=== PATIENT | female | born 1950 | race Caucasian/White ===

== ENCOUNTER 2017-03-27 06:34 | Day surgery (SDC) | payer OTHER ==
[~2017-03-27 06:34] MED LIST: ceFAZolin 2 GM/DEXTROSE 100 ML IV ONE
[2017-03-27] MEDS ORDERED: BUPIVACAINE 0.5% 30 ML SDV ONE (06:36)
[2017-03-27] MEDS ORDERED: ceFAZolin 2 GM/DEXTROSE 100 ML IV ONE (06:41)
[2017-03-27] MEDS ORDERED: LR 1,000 ML IV ONE (06:43)
[2017-03-27] MEDS ORDERED: LIDOCAINE 1% 2 ML INJ ID PRN (06:43)
[2017-03-27 07:38] LABS: ANION GAP 14 mEq/L (8-16); CALCIUM 9.8 mg/dL (8.5-10.4); CARBON DIOXIDE 26 mEq/l (22-31); CHLORIDE 97 mEq/L (97-110); CREATININE 0.8 mg/dL (0.6-1.0); GLOMERULAR FILTRATION RATE > 60; GLUCOSE 90 mg/dL (70-100); POTASSIUM 4.4 mEq/L (3.5-5.2); SODIUM 137 mEq/L (134-144)
--- NOTE | 2017-03-27 08:17 | PDHPUP ---
History & Physical Update H&P update statement: This history and physical update is based on an assessment of the patient which was completed after admission or registration (within 24 hours), but prior to the surgery/procedure. H&P update: H&P reviewed & patient examined, no change in patient's condition since H&P completed
[2017-03-27] MEDS ORDERED: MIDAZOLAM 2 MG/2 ML VIAL IVP ONE (08:21)
--- NOTE | 2017-03-27 08:23 | PDANEPAE ---
ANE History of Present Illness Lumbar hernia ANE Past Medical History - Cardiovascular History Hx Hypertension: Yes Hx Arrhythmias: No Hx Chest Pain: No Hx Coronary Artery / Peripheral Vascular Disease: No Hx CHF / Valvular Disease: No Hx Palpitations: No - Pulmonary History Hx COPD: No Hx Asthma/Reactive Airway Disease: No Hx Recent Upper Respiratory Infection: No Hx Oxygen in Use at Home: No Hx Sleep Apnea: No Sleep Apnea Screening Result - Last Documented: Negative - Neurologic History Hx Cerebrovascular Accident: No Hx Seizures: No Hx Dementia: No Neurologic History Comment: concussions x2 -short term memory loss. - Endocrine History Hx Diabetes: No - Renal History Hx Renal Disorders: No - Liver History Hx Hepatic Disorders: No - Neurological & Psychiatric Hx Hx Neurological and Psychiatric Disorders: Yes Neurological / Psychiatric History Comment: Effexor " evens me out" - Cancer History Hx Cancer: Yes Cancer History Comment: SKIN CANCER-basal - Congenital Disorder History Hx Congenital Disorders: No - GI History Hx Gastrointestinal Disorders: No - Other Health History Other Health History: RA x 2 years managed- Hydroxychloroquine Sulfate. hernia on lumbar area R side. - Chronic Pain History Chronic Pain: No - Surgical History Prior Surgeries: APPY ANE Review of Systems Review of Systems: - Exercise capacity METS (RN): 4 METS ANE Patient History - Allergies Allergies/Adverse Reactions: No Known Allergies Allergy (Verified 03/26/17 13:20) - Home Medications Home Medications: Nebivolol HCl [Bystolic] 20 mg PO HS 04/13/15 [Last Taken 03/26/17] Triamterene/Hydrochlorothiazid [Triamterene-Hctz 37.5-25 mg Cp] 1 each PO DAILY 04/13/15 [Last Taken 03/26/17] Venlafaxine Xr [Effexor Xr 75MG (*)] 75 mg PO DAILY 04/13/15 [Last Taken 06:10] Hydroxychloroquine Sulfate 03/26/17 [Last Taken 03/27/17 06:10] SIMVASTATIN 03/26/17 [Last Taken 03/26/17] - NPO status NPO Since - Liquids (Date): 03/26/17 NPO Since - Liquids (Time): 21:00 NPO Since - Solids (Date): 03/26/17 NPO Since - Solids (Time): 17:00 - Smoking Hx Smoking Status: Former smoker - Family Anes Hx Family Hx Anesthesia Complications: NONE ANE Labs/Vital Signs - Labs Result Diagrams: 03/27/17 07:13 - Vital Signs Blood Pressure: 145/92 Heart Rate: 68 Respiratory Rate: 14 O2 Sat (%): 94 Height: 158.75 cm Weight: 54.431 kg ANE Physical Exam - Airway Neck exam: FROM Mallampati Score: Class 1 Mouth exam: normal dental/mouth exam - Pulmonary Pulmonary: no respiratory distress - Cardiovascular Cardiovascular: regular rate and rhythym - ASA Status ASA Status: II ANE Anesthesia Plan Anesthesia Plan: general endotracheal anesthesia Regional Anesthesia: single shot NB Specialized Airway: double lumen tube Total IV Anesthesia: No
[2017-03-27] MEDS ORDERED: ONDANSETRON 4 MG/2 ML VIAL ONE (08:26)
[2017-03-27] MEDS ORDERED: LIDOCAINE 2% 5 ML SDV ONE (08:26)
[2017-03-27] MEDS ORDERED: DEXAMETHASONE 4 MG/ML VIAL ONE (08:26)
[2017-03-27] MEDS ORDERED: ROCURONIUM 50 MG/5 ML VIAL ONE (08:26)
[2017-03-27] MEDS ORDERED: PROPOFOL 200 MG/20 ML VIAL ONE (08:27)
[2017-03-27] MEDS ORDERED: fentaNYL 100 MCG/2 ML INJ ONE ×3 (08:27→10:46)
[2017-03-27] MEDS ORDERED: NALOXONE HCL 0.4 MG/ML INJ IVP PRN (08:56)
[2017-03-27] MEDS ORDERED: HYDROmorphONE/DILAUDID 1 MG/ML INJ IVP PRN (08:56)
[2017-03-27] MEDS ORDERED: DEXAMETHASONE 4 MG/ML VIAL IVP PRN (08:56)
[2017-03-27] MEDS ORDERED: ONDANSETRON 4 MG/2 ML VIAL IVP PRN (08:56)
[2017-03-27] MEDS ORDERED: THROMBIN (BOVINE) 5,000 UNIT VIAL TP ONE (09:52)
[2017-03-27] MEDS ORDERED: ONDANSETRON DISINTEGRATING 4 MG TAB PO PRN (10:16)
[2017-03-27] MEDS ORDERED: HYDROCODONE/APAP 5/325 TAB PO PRN (10:16)
--- NOTE | 2017-03-27 10:17 | POSTOPPROG ---
Post Op Note Date of Operation: 03/27/17 Surgeon: Jericho Babb Rigging Loft Repairer: Corinna Vasquez Anesthesiologist: Kal Anesthesia: GET(General Endotracheal) Pre-op Diagnosis: Right lumbar hernia Post-op Diagnosis: same Indication: enlarging hernia Procedure: Open right lumbar hernia repair with mesh Inf/Abcess present in the surg proc area at time of surgery?: No Depth: Organ Space EBL: Minimal
--- NOTE | 2017-03-27 10:18 | POSTANESTH ---
Post Anesthetic Evaluation Cardiovascular Status: Normal, Stable Respiratory Status: Normal, Stable Level of Consciousness/Mental Status: Can Participate in Eval Pain Control: Adequate, Prn Tx Ordered Nausea/Vomiting Control: Adequate, Prn Tx Ordered Complications Possibly Related to Anesthesia: None Noted
[2017-03-27 10:26] VITALS: TEMP 98.6
[2017-03-27] MEDS: fentaNYL 100 MCG/2 ML INJ IVP PRN ×3 (10:48→11:06)
[2017-03-27] MEDS ORDERED: HYDROCODONE/APAP 5/325 TAB ONE (11:25)
[2017-03-27 11:40] VITALS: PULSE 69
[2017-03-27 11:44] VITALS: RESP 14
[2017-03-27 13:09] VITALS: BP 122/78; O2SAT 99
--- NOTE | 2017-03-27 19:17 | GOP ---
[f rep st] OPERATIVE REPORT DATE OF OPERATION: 03/27/2017 SURGEON: Jericho Babb MD DATA CONVERSION DEVELOPER: Corinna Vasquez PA-C ANESTHESIOLOGIST: Dr. Bodwen. PREOPERATIVE DIAGNOSIS: Symptomatic right lumbar hernia. POSTOPERATIVE DIAGNOSIS: Symptomatic right lumbar hernia. PROCEDURE PERFORMED: Open repair of the ventral lumbar hernia with mesh. FINDINGS: The patient was found to have protrusion of the right lateral flank underneath the 12th ri b to the lumbar muscles. DESCRIPTION OF PROCEDURE: The patient was taken to the operating room where she received satisfactor y general endotracheal anesthesia by Dr. Bowden. She was placed in the left lateral decubitus positi on, prepped and draped in usual sterile fashion. Oblique incision was made over the hernia defect be low the 12th rib. Dissection was carried down through subcutaneous tissue. The external oblique fas serena was incised. The weakness between the external oblique and internal oblique muscle laterally was identified. This was opened up, exposing a weakness and protrusion through the transversalis in isidro t area. This was incised and the hernia defect was reduced. A subfascial pocket was created circumf erentially. A piece of Covidien ProGrip mesh was placed in the defect and anchored around the periph carla with interrupted 0 Ethibond mattress sutures, a good 1-2 inches away from the open wound. These sutures were tied in position. Valsalva maneuver was done by Anesthesia, with no further protrusion or bulging of the hernia, which had been well demonstrated with a Valsalva maneuver before. The musc le layers were then closed with a running #1 PDS suture for the muscular layers. The wounds were inf iltrated with 0.5% Marcaine, subcu was closed with running 2-0 Vicryl, skin with a 4-0 Monocryl subcu ticular stitch. All levels were fully infiltrated with 0.5% Marcaine. Some topical thrombin was chata harvey in the surgical cavity. She tolerated the procedure well and was taken to recovery room in good condition. There were no complications. /[id number]/MODL
== END 2017-03-27 12:10 | disposition home or self-care (01) ==
LOC: FSGY 06:34
PROVIDERS: ATTEND Surgery
PROC: 0WU Anatomical Regions, General, Supplement (ICD-10-PCS; principal; 2017-03-27 08:30)
DX: K45.8 Other specified abdominal hernia without obstruction or gangrene (principal); K42.9 Umbilical hernia without obstruction or gangrene; I10 Essential (primary) hypertension; F32.9 Major depressive disorder, single episode, unspecified; E78.00 Pure hypercholesterolemia, unspecified; M06.00 Rheumatoid arthritis without rheumatoid factor, unspecified site; G31.84 Mild cognitive impairment of uncertain or unknown etiology; E55.9 Vitamin D deficiency, unspecified
CPT/HCPCS: C1781; J0690; J1100; J2250; J2405; J2704; J3010

== ENCOUNTER → 2017-08-15 | Outpatient (CLI) | payer OTHER | LOC: FIMAGING 14:26 | PROVIDERS: ATTEND Internal Medicine Rheumatology | DX: M06.09 Rheumatoid arthritis without rheumatoid factor, multiple sites (principal) ==

== ENCOUNTER 2018-03-23 09:15 | Inpatient (IN) | payer OTHER ==
[2018-03-23] MEDS ORDERED: NS 1,000 ML IV ONE (09:26)
[2018-03-23] MEDS ORDERED: DIAZEPAM 5 MG TAB ONE (09:56)
--- NOTE | 2018-03-23 10:09 | CPEKG ---
Test Reason : OPEN Blood Pressure : / mmHG Vent. Rate : 145 BPM Atrial Rate : 135 BPM P-R Int : 100 ms QRS Dur : 078 ms QT Int : 312 ms P-R-T Axes : 000 -59 021 degrees QTc Int : 485 ms Atrial fibrillation Left anterior fascicular block Confirmed by Tam Sanz ([id number]) on 03/23/2018 10:08:50 AM Referred By: Confirmed By:Tam Sanz
[2018-03-23 10:13] LABS: PLATELET COUNT 124 10^3/uL (150-400)
[2018-03-23] MEDS ORDERED: DIAZEPAM 5 MG TAB PO ONE (10:15)
[2018-03-23 10:25] LABS: INR 1.05 (0.83-1.16); PROTIME(PATIENT) 13.9 SEC (12.0-15.0)
[2018-03-23] MEDS ORDERED: LIDOCAINE 1% 300 MG/30 ML SDV ONE (10:55)
[2018-03-23] MEDS ORDERED: ISOPROTERENOL HCL/D5W 0.2 MG/50 ML BAG IV ONE (10:56)
[2018-03-23] MEDS ORDERED: BUPIVACAINE 0.75% 10 ML SDV ONE (10:56)
[2018-03-23] MEDS ORDERED: HEPARIN 10,000 UNIT/10 ML MDV (1,000 UNIT/ML) ONE (10:56)
--- NOTE | 2018-03-23 11:02 | PDGENHP ---
History & Physical Chief Complaint: symptomatic afib and afl Relevant Physical Exam: s1s2 tachycardic. cta. ao3 Cardiorespiratory Assessment: for afl ablation
--- NOTE | 2018-03-23 11:15 | PDANEPAE ---
ANE Past Medical History - Cardiovascular History Hx Hypertension: Yes Hx Arrhythmias: Yes Hx Chest Pain: Yes Hx Coronary Artery / Peripheral Vascular Disease: No Hx CHF / Valvular Disease: Yes Hx Palpitations: No - Pulmonary History Hx COPD: No Hx Asthma/Reactive Airway Disease: No Hx Recent Upper Respiratory Infection: No Hx Oxygen in Use at Home: No Hx Sleep Apnea: No - Neurologic History Hx Cerebrovascular Accident: No Hx Seizures: No Hx Dementia: No Neurologic History Comment: concussions x2 -short term memory loss. - Endocrine History Hx Diabetes: No - Renal History Hx Renal Disorders: No - Liver History Hx Hepatic Disorders: No - Neurological & Psychiatric Hx Hx Neurological and Psychiatric Disorders: Yes Neurological / Psychiatric History Comment: Effexor " evens me out" - Cancer History Hx Cancer: Yes Cancer History Comment: SKIN CANCER-basal - Congenital Disorder History Hx Congenital Disorders: No - GI History Hx Gastrointestinal Disorders: No - Other Health History Other Health History: RA x 2 years managed- Hydroxychloroquine Sulfate. hernia on lumbar area R side. - Chronic Pain History Chronic Pain: No - Surgical History Prior Surgeries: APPY ANE Review of Systems Review of Systems: ANE Patient History - Allergies Allergies/Adverse Reactions: No Known Allergies Allergy (Verified 01/28/18 11:03) - Home Medications Home medications: home medication list seen and reviewed Home Medications: Triamterene/Hydrochlorothiazid [Triamterene-Hctz 37.5-25 mg Cp] 1 each PO DAILY 04/13/15 [Last Taken 02/20/18] Venlafaxine Xr [Effexor Xr 75MG (*)] 75 mg PO DAILY 04/13/15 [Last Taken ] Allopurinol [Allopurinol 300 MG (RX)] 300 mg PO DAILY 02/20/18 [Last Taken Unknown] Apixaban [Eliquis] 5 mg PO BID 02/20/18 [Last Taken Unknown] Herbals/Supplements -Info Only 1 ea PO DAILY 02/20/18 [Last Taken Unknown] Meloxicam 15 mg PO DAILY 02/20/18 [Last Taken Unknown] Metoprolol Succinate Xr [Toprol Xl 50 mg (*)] 100 mg PO BID 02/20/18 [Last Taken 02/20/18] Simvastatin 20 mg PO HS 02/20/18 [Last Taken Unknown] - NPO status NPO Status: no food or drink >8 hours - Anes Hx Anes Hx: no prior problems - Smoking Hx Smoking Status: Former smoker - Family Anes Hx Family Hx Anesthesia Complications: NONE ANE Labs/Vital Signs - Labs Result Diagrams: 03/23/18 09:50 03/23/18 09:50 ANE Physical Exam - Airway Neck exam: FROM Mallampati Score: Class 2 Mouth exam: normal dental/mouth exam - Pulmonary Pulmonary: no respiratory distress, no rales or rhonchi, clear to auscultation - Cardiovascular Cardiovascular: tachycardia - ASA Status ASA Status: III ANE Anesthesia Plan Anesthesia Plan: general endotracheal anesthesia
[2018-03-23] MEDS ORDERED: DEXAMETHASONE 4 MG/ML VIAL ONE (11:16)
[2018-03-23] MEDS ORDERED: ONDANSETRON 4 MG/2 ML VIAL ONE (11:16)
[2018-03-23] MEDS ORDERED: PROPOFOL 200 MG/20 ML VIAL ONE (11:16)
[2018-03-23] MEDS ORDERED: ROCURONIUM 100 MG/10 ML VIAL ONE (11:16)
[2018-03-23] MEDS ORDERED: fentaNYL 100 MCG/2 ML INJ ONE (11:16)
[2018-03-23] MEDS ORDERED: HEPARIN/DEXTROSE 25,000 UNIT/500 ML BAG ONE (12:00)
[2018-03-23] MEDS ORDERED: PHENYLEPHRINE HCL 100 MCG/ML SYR ONE ×2 (12:16)
[2018-03-23] MEDS ORDERED: NEOSTIGMINE METHYLSULFATE 5 MG/5 ML SYR ONE (13:12)
[2018-03-23] MEDS ORDERED: GLYCOPYRROLATE 0.2 MG/1 ML VIAL ONE (13:12)
[2018-03-23] MEDS ORDERED: PROTAMINE SULFATE 50 MG/5 ML VIAL IVP ONE (13:14)
[2018-03-23] MEDS ORDERED: DIAZEPAM 5 MG/ML 1 ML SYR IVP PRN (13:15)
[2018-03-23] MEDS ORDERED: ACETAMINOPHEN 500 MG TAB PO PRN (13:15)
[2018-03-23] MEDS ORDERED: HYDROCODONE/APAP 5/325 TAB PO PRN (13:15)
[2018-03-23] MEDS ORDERED: ONDANSETRON 4 MG/2 ML VIAL IVP PRN (13:15)
[2018-03-23] MEDS ORDERED: PROMETHAZINE HCL 25 MG/ML INJ IVP PRN (13:15)
[2018-03-23] MEDS ORDERED: oxyCODONE IR 5 MG TAB PO PRN (13:15)
[2018-03-23] MEDS ORDERED: fentaNYL 100 MCG/2 ML INJ IVP PRN (13:15)
[2018-03-23] MEDS ORDERED: NALOXONE HCL 0.4 MG/ML INJ IVP PRN (13:15)
[2018-03-23] MEDS ORDERED: DEXAMETHASONE 4 MG/ML VIAL IVP PRN (13:15)
[2018-03-23] MEDS ORDERED: NS 500 ML IV PRN (13:15)
--- NOTE | 2018-03-23 13:16 | EPPROC ---
Electrophysiology Procedure Note: ELECTROPHYSIOLOGIC STUDY AND CATHETER MEDIATED ABLATION FOR SUBEUSTACHIAN ISTHMUS DEPENDENT COUNTERCLOCKWISE ATRIAL FLUTTER: INDICATION: Recurrent atrial flutter Atrial fibrillation post atrial flutter PROCEDURES PERFORMED: 38619-72 EP evaluation with RA/RV/LA pace/record, with arrhythmia induction 53833-92 EP evaluation with RA/RV pace record, insert/reposition catheter, with arrhythmia induction Right heart catheterization 78177 SVT ablation 52800 3D mapping Fluoroscopy Catheters & Anesthesia: The patient arrived in the Electrophysiology Laboratory in the fasting state. The right clavicular region, right groin, and left groin area were prepped and draped in the usual sterile manner. Anesthesiologist Dr. Eulogio Christianson administered general anesthesia. Appropriate non-invasive blood pressure, pulse oximetry and end-tidal CO2 monitoring was established. Right heart catheterization was done using PWP catheters RA 10 mmHg, 75.9% RV 32/8 mmHg, 75.6% PA 36/18 mmHg, 74.5% All catheters were placed percutaneously using the modified Seldinger technique , and advanced into position under fluoroscopic guidance. One #7 Panamanian deflectable octapolar electrode catheter was advanced to the His-bundle position via the left femoral vein (2mm spacing; except the proximal ring which was 25cm from the tip used for unipolar recordings). One #7 Panamanian deflectable catheter with 10 pairs of electrodes was placed via the left femoral vein into the coronary sinus. One # 7 Panamanian Halo catheter was inserted through the right femoral vein and was placed at the tricuspid annulus. Heparin was administered to keep ACT > 300 seconds. Programmed stimulation was performed from the right atrium, coronary sinus ( left atrium) and right ventricle. Parahisian pacing demonstrated all retrograde conduction over the AV node. On arrival to the Electrophysiology Laboratory the patient was in atrial fibrillation. Post MARJORIE, DCCV was performed. Atrial flutter has been documented previously. In preparation for ablation of typical atrial flutter, a high-resolution 3D (3 dimensional) Carto electroanatomical map of the sub-Eustachian isthmus and right atrium was obtained during pacing of the posterolateral coronary sinus. For ablation of typical atrial flutter, one #8.5 Panamanian ramp1 sheath was placed in the right atrium. A #8 Panamanian deflectable quadrapolar electrode catheter ( 2mm-5mm-2mm spacing) with 3.5 mm irrigated tip electrode and location sensor for the Biosense mapping system was inserted in the long sheath and advanced to the right atrium. Radiofrequency applications were applied between the tricuspid annulus at 0630 oclock as seen in the ROMANIAN view and the inferior vena cava. This achieved conduction block across the isthmus. Following ablation of the atrial flutter, programmed atrial stimulation was performed No atrial arrhythmias were inducible post ablation. Antegrade WBB 370 ms. Post ablation, a high-resolution electroanatomical map of the sub-Eustachian isthmus was obtained during pacing of the posterolateral coronary sinus. This confirmed conduction block across the sub-Eustachian isthmus. Bidirectional block was also confirmed by pacing. The catheters were removed. Protamine was administered. Sheaths were removed in the EP lab after applying subcutaneous purse string suture. The patient was transferred to the cardiovascular holding area in stable condition. There were no apparent complications. CONCLUSIONS: 1. Cavotricuspid isthmus dependent counterclockwise atrial flutter. 2. Successful catheter mediated ablation of cavotricuspid isthmus achieving bi -directional conduction block across cavotricuspid isthmus. 3. Atrial fibrillation, not targeted for ablation. 4. No apparent complications. Patient Problems: Problems Problem Status Onset Alcohol withdrawal Acute Catheter-associated urinary tract infection Acute Chest pain Acute Diarrhea due to alcohol intake Acute Encephalopathy acute Acute Facial paresis Acute Generalized weakness Acute Hemiparesis Acute Hepatitis, alcoholic, acute Acute Hypomagnesemia Acute Hyponatremia Acute Sepsis Acute
--- NOTE | 2018-03-23 13:53 | POSTANESTH ---
Post Anesthetic Evaluation Cardiovascular Status: Other, See Comment (Sinus tachy 115.) Respiratory Status: Normal, Stable, Similar to Pre-op Cond. Level of Consciousness/Mental Status: Can Participate in Eval, Mildly Sleepy, Arousable Pain Control: Adequate, Prn Tx Ordered Nausea/Vomiting Control: Adequate, Prn Tx Ordered Complications Possibly Related to Anesthesia: None Noted
[2018-03-23] MEDS ORDERED: LORazepam 2 MG/ML INJ ONE (16:38)
[2018-03-23] MEDS ORDERED: LORazepam 2 MG/ML INJ IV ONE (16:45)
[2018-03-23] MEDS ORDERED: AMIODARONE A.FIB-6HR INFSN (ORDER 2/3) PREMIX IV ONE (17:00)
[2018-03-23] MEDS ORDERED: AMIODARONE A.FIB-LOAD DOSE(ORDER 1/3) PREMIX IV ONE (17:00)
--- NOTE | 2018-03-23 17:21 | PDCARPN ---
Cardiology Progress Note Chief Complaint: Anxious, and shaking Assessment/Plan: Assessment: Status post Atrial Flutter Ablation today. Nita became anxious and shaky. Valium was given. Her other sales support worker showed atrial tachycardia with rate 170 to 180, with intermittent Atrial Fib. Her BP jumped to 160/100. Monitor strip showed to Dr Barakat. He recommends giving Amiodarone Bolus, then Amiodarone protocol. She has history of alcohol use and possibly more than she admitted to. Will watch her closely for TD's. Hospitalists contacted to see her, and follow along. Plan: Amiodarone Protocol for atrial Tachy/A Fib. Monitor BP closely. Monitor for Alcohol withdrawal. 03/23/18 17:11 Reviewed/Discussed With: hospitalist, multidisciplinary team Time Spent with Patient: greater than 25 minutes Time Spent with Patient: Greater than 25 minutes spent on this patients care, greater than 50% of time spent counseling, educating, and coordinating care regarding the above mentioned plan. Objective: Vital Signs (8 Hrs) Temp Pulse Resp BP Pulse Ox 03/23/18 16:23 36.7 C 168 H 12 162/118 H 97 03/23/18 15:16 36.7 C 122 H 12 163/107 H 91 L Intake/Output (24 Hrs) 03/22/18 03/23/18 03/24/18 05:59 05:59 05:59 Other: Weight 53.524 kg Result Diagrams: 03/23/18 09:50 03/23/18 09:50 Telemetry: Atrial Tachycardia / Atrial Fib ICD10 Worksheet Patient Problems: Problems Problem Status Onset Alcohol withdrawal Acute Hypomagnesemia Acute Hepatitis, alcoholic, acute Acute Diarrhea due to alcohol intake Acute Encephalopathy acute Acute Generalized weakness Acute Chest pain Acute Facial paresis Acute Hyponatremia Acute Hemiparesis Acute Catheter-associated urinary tract infection Acute Sepsis Acute
[2018-03-23] MEDS ORDERED: WHITE WINE 120 ML BOTTLE PO SCH (18:00)
[2018-03-23] MEDS ORDERED: FLUMAZENIL 0.5 MG/5 ML MDV IVP PRN (18:06)
[2018-03-23] MEDS ORDERED: TROLAMINE SALICYLATE 85 GM CRTUBE TP PRN (18:10)
[2018-03-23] MEDS ORDERED: METOPROLOL TARTRATE 50 MG TAB PO PRN (18:10)
[2018-03-23] MEDS ORDERED: LORazepam 0.5 MG TAB PO PRN (18:10)
[2018-03-23] MEDS: THIAMINE HCL 100 MG TAB PO SCH (18:37)
[2018-03-23] MEDS: METOPROLOL SUCCINATE XR 50 MG TAB PO SCH (18:38)
--- NOTE | 2018-03-23 18:52 | PDGENHP ---
History and Physical History and Physical: CC: I am asked by Dr. Catarino Barakat to evaluate and assist in the care of this patient who is having acute alcohol withdrawal today after having an ablation therapy for a flutter this morning. HISTORY: This patient was recently identified as having atrial flutter from which she has been quite symptomatic. She has been hospitalized once last month for this and has found that it limits her physical activity. She has not had overt heart failure per se. She was brought into the hospital today for elective ablation therapy. She had 1 previous failed attempt at electric cardioversion. She had a successful cardioversion to sinus rhythm but shortly thereafter developed rapid atrial fibrillation and is in atrial fibrillation with heart rate of 160 beats per minute now. She is not having angina or short of breath. Note that the patient did not want to come to the hospital for this procedure due to severe anxiety disorder, but agreed to do this as a birthday present to her , today is his birthday. The patient has a long history of severe anxiety disorder, ongoing heavy alcohol use, 1 prior history of acute alcohol withdrawal here for which was treated in the intensive care unit. She tells me that she has been severely anxious for the last 4 days knowing that she was coming to the hospital for this procedure. She is extremely scared of hospitals. She says she got up this morning out of bed and was hyperventilating from this anxiety. At home she drinks daily both wine and vodka both heavily though clarify in the amount is difficult. Her last alcohol was last night. Today she is very anxious right now, with a very significant tremor that has started up. She has become increasingly hypertensive and tachycardic through the afternoon. ROS: A comprehensive 10 system review revealed no other significant findings PAST MEDICAL HISTORY: Alcoholism, 1 prior episode of alcohol withdrawal syndrome treated here 3 years ago in the intensive care unit New atrial fibrillation and flutter Chronic severe anxiety disorder Rheumatoid arthritis Gout hypertension Hyperlipidemia Pulmonary hypertension noted on previous echocardiograms Peripheral neuropathy Appendectomy FAMILY MEDICAL HISTORY: Premature coronary disease Colon cancer SOCIAL HISTORY: lives with her Alcohol use is heavy as above No tobacco or street drugs MEDICATIONS: The patients list has been reconciled by our clinical pharmacist in the EMR. I have reviewed the list and ordered appropriate medicines. PHYSICAL EXAMINATION: Vital Signs: Irregular pulse in the 160s, blood pressure 162/118, no fever, respirations stable Backbreaker: Rapid AFib Examination: General: alert, quite anxious but currently oriented, severe diffuse tremor Skin: warm, dry, good color, no rash HEENT: normal Neck: no mass or jvd Resps: relaxed Lungs: clear breath sounds Heart: Rapid and irregular, no murmur Abdomen: soft, nondistended, nontender, +BS, no mass Upper Extremities: normal Lower Extremities: no edema, warm No Bleeding or bruising Neurologic: normal speech/language, normal garment worker, no focal weakness IV site: looks normal LABORATORY DATA: Platelet count slightly low at 124 Chemistry remarkable mainly for mild hypomagnesemia RADIOLOGY STUDIES: None so far 12 LEAD EKG: Most recent EKG from earlier this afternoon shows sinus tachycardia rate 119, left anterior fascicular block, nonischemic ASSESSMENT: * acute alcohol withdrawal less than 24 hr since her last drink from alcohol * prior history of severe alcohol withdrawal 3 years ago * suspected vitamin deficiencies * hypomagnesemia * rapid atrial fibrillation after ablation for atrial flutter; she was initially in sinus tachycardia after the ablation, suspect the AFib largely caused by alcohol and withdrawal at this time * severe anxiety disorder * alcoholism * pulmonary hypertension chronic * history of rheumatoid arthritis, gout, hyperlipidemia, hypertension, peripheral neuropathy I reviewed the current situation and plans in detail with Dr. Barakat. At this point it would be better to try and veras off severe alcohol withdrawal of possible given her AFib and post ablation picture so will see if we are able to reduce it somewhat with some alcohol, however given the trajectory of symptoms I am not sure that this will actually be successful and we may Jimenes withdrawal her here at this time in terms of safety. PLANS: * Dr. Barakat will continue to manage her arrhythmia and tachycardia from Heart standpoint; he is ordered amiodarone and rate control medicines * I have ordered alcohol withdrawal protocols * Will have her drink alcohol tonight to see if this helps settle things down, will abandon that if she progresses to severe alcohol withdrawal * At some point when things are stabilized better cardiac العراقي, she will need to get off alcohol 1 where another if she is willing * Magnesium replacement, electrolyte protocols * Thiamin replacement * Alcohol counseling and recommendation for considering residential treatment or other effective therapy for her after this hospital admission note that the patient is currently stating she will not stay here beyond tomorrow morning; her daughter was with her at this time. I did review with them that I believe at a minimum she needs to get heart rate control 1 where another, else she will develop heart failure and end up coming right back to the hospital for that. I have reviewed the patient's case in detail with Dr. Catarino Barakat I have reviewed the patient's past medical records as part of this assessment, including previous hospital admission records
[2018-03-23] MEDS ORDERED: PROTOCOL MAGNESIUM 1 DOSE IV PRN (18:53)
[2018-03-23] MEDS ORDERED: PROTOCOL POTASSIUM 1 DOSE MISC PRN (18:53)
[2018-03-23] MEDS: LORazepam 2 MG/ML INJ IVP PRN ×2 (19:09→20:20)
[2018-03-23] MEDS: APIXABAN 5 MG TAB PO SCH (19:59)
[2018-03-23] MEDS: FLECAINIDE ACETATE 100 MG TAB PO SCH (19:59)
[2018-03-23] MEDS: ATORVASTATIN CALCIUM 10 MG TAB PO SCH (20:00)
[2018-03-23] MEDS ORDERED: AMIODARONE A.FIB-18HR INFSN (ORDER 3/3) IV ONE (23:00)
[2018-03-24 05:56] LABS: PLATELET COUNT 114 10^3/uL (150-400)
[2018-03-24] MEDS ORDERED: MAGNESIUM SULF 2 GM/WATER 50 ML IV ONE (07:20)
--- NOTE | 2018-03-24 08:40 | CPEKG ---
Test Reason : OPEN Blood Pressure : / mmHG Vent. Rate : 119 BPM Atrial Rate : 120 BPM P-R Int : 168 ms QRS Dur : 082 ms QT Int : 359 ms P-R-T Axes : 076 -59 -14 degrees QTc Int : 506 ms Sinus tachycardia Probable left atrial enlargement Left anterior fascicular block Prolonged QT interval Confirmed by Tam Sanz ([id number]) on 03/24/2018 8:40:01 AM Referred By: Confirmed By:Tam Sanz
[2018-03-24] MEDS: LORazepam 2 MG/ML INJ IVP PRN (09:16)
[2018-03-24] MEDS: APIXABAN 5 MG TAB PO SCH ×2 (09:28→19:54)
[2018-03-24] MEDS: MULTIVITAMINS 1 EACH TAB PO SCH (09:28)
[2018-03-24] MEDS: ALLOPURINOL 300 MG TAB PO SCH (09:28)
[2018-03-24] MEDS: MAGNESIUM OXIDE 400 MG TAB PO SCH (09:28)
[2018-03-24] MEDS: FLECAINIDE ACETATE 100 MG TAB PO SCH ×2 (09:28→19:54)
[2018-03-24] MEDS: VENLAFAXINE XR 75 MG CAP PO SCH (09:29)
[2018-03-24] MEDS: THIAMINE HCL 100 MG TAB PO SCH (09:29)
[2018-03-24] MEDS: IRBESARTAN 150 MG TAB PO SCH (09:29)
[2018-03-24] MEDS: TRIAMTERENE/HCTZ 37.5/25 1 EACH CAP PO SCH (10:07)
[2018-03-24] MEDS: DIAZEPAM 5 MG TAB PO PRN ×2 (12:19→21:51)
--- NOTE | 2018-03-24 14:27 | ECHO ---
[email or web address] [address] [address] Main: [phone] Fax: Transthoracic Echocardiogram Name: ADILSON TATE MR#: [id number] Study Date: 03/24/2018 Study Time: 10:56 AM Date of : 1950 Age: 67 year(s) Height: 157.5 cm (62 in.) Weight: 53.52 kg (118 lb.) BSA: 1.53 m2 Gender: Female Examination: Echo Indication: F/U Post EP Study Image Quality: Adequate Contrast: Requested by: Catarino Barakat BP: 143 mmHg/92 mmHg Heart Rate: Rhythm: Indication: F/U Post EP Study Procedure Staff Lead Sewage Plant Operator: Dulce Maria Grove RDCS Reading Physician: Catarino Barakat MD Requesting Provider: Conclusions: Normal global systolic LV function. Normal RV function. The left atrium is mildly dilated. Right atrial enlargement. Moderate mitral valve regurgitation is present. Trivial aortic valve regurgitation. Right ventricular systolic pressure measures 44mmHg. Measurements: Chambers Valvular Assessment AV/MV Valvular Assessment TV/PV Normal Normal Normal Name Value Range Name Value Range Name Value Range Ao Louise (2D): 3.0 cm (1.4 cm-2.6 AV Vmax: 1.41 m/s (1 m/s-1.7 TR Vmax: 3.14 mm/s ( - ) cm) m/s) TR PGmax: 39 mmHg ( - ) IVSd (2D): 1.0 cm (0.6 cm-1.1 AV maxP mmHg ( - ) syst. PAP: 44 mmHg ( - ) cm) AV meanP mmHg ( - ) PV Vmax: 0.71 m/s (0.6 m/s-0.9 LVDd (2D): 3.6 cm (3.9 cm-5.3 BREANNA (VTI): 1.5 cm ( - ) m/s) cm) MV E Vmax: 0.80 m/s ( - ) PV PGmax: 2 mmHg ( - ) LVDs (2D): 2.4 cm (2.1 cm-4 MV A Vmax: 0.60 m/s ( - ) cm) MV E/A: 1.33 ( - ) LVPWd (2D): 1.0 cm ( - ) MV PHT: 0.067 s ( - ) LVOTd 2.0 cm 2.0 cm mm MVA (PHT): 3.3 s ( - ) LVEF (BP): 57 % (>=55 %) RVDd(2D): 3.0 cm (1.9 cm-3.8 cmmm) Continued Measurements: Chambers Valvular Assessment AV/MV Valvular Assessment TV/PV Name Value Name Value Name Value Patient: ADILSON TATE Study Date: 03/24/2018 Page 1 of 2 10:56 AM LADs: 3.3 cm MV DecTime: 229 m/s CVP (est.): 5 mmHg LADs Lon.5 cm MR ERO: 0.120 cm2 LA Area: 19.4 cm2 MR PISA radius: 5 mm LA Volume: 53 ml MR Reg. Volume: 19 ml LA Volume Index: 34.6 ml/m2 RA Area: 17.1 cm2 Additional Vessels Name Value Ao Ascendin.8 cm Inferior Vena Cava: 1.6 cm Findings: Left Ventricle: Normal size left ventricle. No LV hypertrophy. Normal global systolic LV function. EF is 57 %. No regional wall motion abnormality. UNABLE TO ASSESS DIASTOLIC FUNCTION DUE TO ARRHYTHMIA AND CRITERIA. Right Ventricle: Normal size right ventricle. Normal RV function. Left Atrium: The left atrium is mildly dilated. Right Atrium: Right atrial enlargement. Mitral Valve: The mitral valve is normal in appearance and function. Moderate mitral valve regurgitation is present. No mitral stenosis is present. Aortic Valve: The aortic valve is tri-leaflet. Trivial aortic valve regurgitation. No aortic valve stenosis is present. Tricuspid Valve: The tricuspid valve is normal in appearance and function. Mild to moderate tricuspid valve regurgitation. The pulmonary artery pressure is mildly increased. Right ventricular systolic pressure measures 44mmHg. Pulmonic Valve: The pulmonic valve is normal in appearance and function. There is no pulmonic regurgitation seen. Aorta: The aorta is normal. Normal size aortic root measuring 3.0 cm. Normal size ascending aorta measuring 2.8 cm. IVC: The IVC is normal sized. Pericardium: Possible physiologic pericardial effusion. (No Signature Object) Patient: ADILSON TATE Study Date: 03/24/2018 Page 2 of 2 10:56 AM [id number]
[2018-03-24] MEDS: LORazepam 1 MG TAB PO PRN ×2 (15:22→19:55)
--- NOTE | 2018-03-24 16:44 | ASMTCMCOM ---
CM Note CM Note Notes: 03/24/2018 Case Management Note Met w/ Katie [phone] and pt to discuss ETOH cessation resources. Pt stated she would call her friend Tess who has achieved sobriety through AA. Provided list of Medicare resources including 30 day inpatient, intensive outpatient, private counseling and local AA resources. Pt was unwilling to discuss her plans with case management stating that once she gets home she will be fine. Pt is not committed to achieving sobriety at this time. Case Management d/c poc: home with family and follow up as directed. Case Management to follow. Date Signed: 03/24/2018 04:43 PM Electronically Signed By:Sanam Machado RN
--- NOTE | 2018-03-24 17:52 | HOSPPROG ---
Hospitalist Progress Note Assessment/Plan: * Etoh withdrawal - improved -wean benzos to off as tolerated * Afib s/p ablation -continue Flecainide + metoprolol -Eliquis -cleared by cardiology for discharge when medically ready * Severe anxiety -difficult to distinguish withdrawal vs tremor due to persistent anxiety * RA/Gout -on allopurinol Subjective: Anxious for discharge. Still very weak, can't care for her at home Objective: Vital Signs Temp Pulse Resp BP Pulse Ox 36.5 C 114 H 18 144/101 H 96 03/24/18 15:07 03/24/18 15:27 03/24/18 15:07 03/24/18 15:27 03/24/18 15:07 Laboratory Results 03/24/18 04:15 03/24/18 04:15 03/23/18 03/24/18 03/25/18 05:59 05:59 05:59 Intake Total 440 Balance 440 PT 13.9 SEC (12.0-15.0) 03/23/18 09:50 INR 1.05 (0.83-1.16) 03/23/18 09:50 d/w Patience Greenwood regarding lack of stability for discharge ECHO - normal EF, mild increased pulmonary pressure - Physical Exam Constitutional: no apparent distress, appears nourished, not in pain Cardiovascular: regular rate and rhythym, no murmur, rub, or gallop Respiratory: no respiratory distress, no rales or rhonchi, clear to auscultation Gastrointestinal: normoactive bowel sounds, soft, non-tender abdomen, no palpable masses Skin: no rashes or abrasions, no fluctuance, no induration Neurologic: AAOx3, sensation intact bilaterally Psychiatric: interacting appropriately, not anxious, not encephalopathic, thought process linear ICD10 Worksheet Patient Problems: Problems Problem Status Onset Alcohol withdrawal Acute Catheter-associated urinary tract infection Acute Chest pain Acute Diarrhea due to alcohol intake Acute Encephalopathy acute Acute Facial paresis Acute Generalized weakness Acute Hemiparesis Acute Hepatitis, alcoholic, acute Acute Hypomagnesemia Acute Hyponatremia Acute Sepsis Acute
[2018-03-24] MEDS: METOPROLOL SUCCINATE XR 50 MG TAB PO SCH (17:59)
--- NOTE | 2018-03-24 18:00 | PDCARPN ---
Cardiology Progress Note Assessment/Plan: Assessment: Status post Atrial Flutter Ablation today. Nita became anxious and shaky. Valium was given. Her monitoring analyst showed atrial tachycardia with rate 170 to 180, with intermittent Atrial Fib. Her BP jumped to 160/100. Monitor strip showed to Dr Barakat. He recommends giving Amiodarone Bolus, then Amiodarone protocol. She has history of alcohol use and possibly more than she admitted to. Will watch her closely for TD's. Hospitalists contacted to see her, and follow along. Plan: Amiodarone Protocol for atrial Tachy/A Fib. Monitor BP closely. Monitor for Alcohol withdrawal. 03/23/18 17:11 03/24/18 17:[address] Barakat yesterday. Today intermittent Atrial Tachycardia. Remains on Flecainide. By echo Mod MR, mod PHT, Mod TR Groin sites intact with minimal ecchymosis, and no bleeding. Purse string sutures removed today with no complications. Light dressing placed. Appreciate Hospitalist assist. Alcohol Withdrawal managed by Hospitalist. She is shaky, and anxious today. unsteady on feet. Ambulates with walker. Subjective: "I have no pain" Reviewed/Discussed With: family, hospitalist, multidisciplinary team Time Spent with Patient: greater than 25 minutes Time Spent with Patient: Greater than 25 minutes spent on this patients care, greater than 50% of time spent counseling, educating, and coordinating care regarding the above mentioned plan. Objective: Vital Signs (8 Hrs) Temp Pulse Resp BP Pulse Ox 03/24/18 15:27 114 H 144/101 H 03/24/18 15:07 36.5 C 121 H 18 162/130 H 96 03/24/18 11:19 36.8 C 96 16 145/91 H 90 L 03/24/18 10:07 143/92 H Intake/Output (24 Hrs) 03/23/18 03/24/18 03/25/18 05:59 05:59 05:59 Intake Total 440 Balance 440 Intake: Oral (ml) 440 Other: Weight 53.524 kg Number of Voids Bedside Commode 1 Result Diagrams: 03/24/18 04:15 03/24/18 04:15 Cardiac Labs: Cardiac Lab Results (72 Hrs) 03/24/18 04:15 Troponin I 0.258 H - Physical Exam Constitutional: other (Shaking today) Cardiovascular: no rubs, no gallops, systolic murmur, irregularly irregular Respiratory: no crackles, no wheezes, reduced air movement Skin: warm, no edema Neurologic: other (shaky) Psychiatric: cooperative, anxious, flat affect ICD10 Worksheet Patient Problems: Problems Problem Status Onset Alcohol withdrawal Acute Hypomagnesemia Acute Hepatitis, alcoholic, acute Acute Diarrhea due to alcohol intake Acute Encephalopathy acute Acute Generalized weakness Acute Chest pain Acute Facial paresis Acute Hyponatremia Acute Hemiparesis Acute Catheter-associated urinary tract infection Acute Sepsis Acute
[2018-03-24] MEDS: ATORVASTATIN CALCIUM 10 MG TAB PO SCH (19:54)
[2018-03-25 08:06] VITALS: BP 121/88
[2018-03-25] MEDS ORDERED: POTASSIUM CL 10 MEQ TAB PO ONE (09:04)
[2018-03-25] MEDS ORDERED: MAGNESIUM SULF 1 GM/DEXTROSE 100 ML IV ONE (09:04)
[2018-03-25] MEDS: FLECAINIDE ACETATE 100 MG TAB PO SCH (09:30)
[2018-03-25] MEDS: IRBESARTAN 150 MG TAB PO SCH (09:33)
[2018-03-25] MEDS: VENLAFAXINE XR 75 MG CAP PO SCH (09:33)
[2018-03-25] MEDS: TRIAMTERENE/HCTZ 37.5/25 1 EACH CAP PO SCH (09:33)
[2018-03-25] MEDS: THIAMINE HCL 100 MG TAB PO SCH (09:33)
[2018-03-25] MEDS: APIXABAN 5 MG TAB PO SCH (09:33)
[2018-03-25] MEDS: MULTIVITAMINS 1 EACH TAB PO SCH (09:33)
[2018-03-25] MEDS: ALLOPURINOL 300 MG TAB PO SCH (09:33)
[2018-03-25] MEDS: MAGNESIUM OXIDE 400 MG TAB PO SCH (09:33)
--- NOTE | 2018-03-25 11:28 | PDIAF ---
- Diagnosis Diagnosis: Alcohol withdrawal Code Status: Full Code - Medication Management Discharge Medications: Medications to Continue on Transfer Triamterene/Hydrochlorothiazid [Triamterene-Hctz 37.5-25 mg Cp] 1 each PO DAILY 04/13/15 [Last Taken 03/21/18] Venlafaxine Xr [Effexor Xr 75MG (*)] 75 mg PO DAILY 04/13/15 [Last Taken ] Allopurinol [Allopurinol 300 MG (RX)] 300 mg PO DAILY 02/20/18 [Last Taken 03/21] Apixaban [Eliquis] 5 mg PO BID 02/20/18 [Last Taken 03/20/18] Meloxicam 15 mg PO DAILY 02/20/18 [Last Taken 03/21/18] Metoprolol Succinate Xr [Toprol Xl 50 mg (*)] 100 mg PO DAILY 02/20/18 [Last Taken 03/21/18] Simvastatin 20 mg PO HS 02/20/18 [Last Taken 03/21/18] Flecainide Acetate [Tambocor] 50 mg PO BID #60 tab 02/21/18 [Last Taken 03/21/18 ] Irbesartan [Avapro 150 mg (*)] 150 mg PO DAILY #30 tab 02/21/18 [Last Taken 02/28] LORazepam [Ativan (*)] 0.5 - 1 mg PO Q8HRS PRN #20 tab 02/21/18 [Last Taken Unknown] Magnesium Oxide [Magnesium Oxide 400 mg (*)] 400 mg PO DAILY tab 02/21/18 [ Last Taken 03/21/18] Metoprolol Tartrate [Lopressor 50 mg (*)] 50 mg PO DAILY PRN 03/23/18 [Last Taken Unknown] Trolamine Salicylate [Aspercreme] 1 araseli TP DAILY PRN 03/23/18 [Last Taken Unknown] Multivitamins [Multivitamin (*)] 1 each PO DAILY tab 03/24/18 [Last Taken Unknown] Discharge Medications: Refer to the Discharge Home Medication list for PRN reason. - Orders Services needed: Home Care, Registered Nurse, Physical Therapy, Occupational Therapy Home Care Face to Face: I certify that this patient was under my care and that I had the required [id number] encounter meeting the encounter requirements on the discharge day. My findings support the fact that the patient is homebound as defined in Home Care Face to Face Continued: CMS Chapter 7 Medicare Benefits Manual 30.1.1 , The condition of the patient is such that there exists a normal inability to leave home and consequently, leaving home would require a considerable and taxing effort. Diet Recommendation: no restrictions on diet Diet Texture: Regular Texture Diet Additional Instructions: Groin precautions for 7 days. No lifting, pushing, pulling greater than 10 pounds for 7 days Written Instruction sheet provided. No sitting in tub of water for 7 days, OK to SHOWER No OINTMENTS on incision site. Clean site with soap and water. Follow up with Dr Barakat in 4 weeks. Call office for any concerns or questions: [phone] Barakat's RN, Suzan or Maryana. Recommend alcohol cessation - Follow Up Care Current Providers and Referrals: Catarino Barakat MD [Medical Doctor] - (Follow up in [address] Barakat. ) Sarah Beth Cancino MD [Primary Care Provider] -
--- NOTE | 2018-03-25 17:05 | HOSPPROG ---
Hospitalist Progress Note Assessment/Plan: * Etoh withdrawal - improved -wean benzos to off * Afib s/p ablation -continue Flecainide + metoprolol -Eliquis -back into afib at discharge - per Dr. Barakat still domitilaay for discharge * Severe anxiety -difficult to distinguish withdrawal vs tremor due to persistent anxiety * RA/Gout -on allopurinol Subjective: Wants desperately to go home Objective: Vital Signs Temp Pulse Resp BP Pulse Ox 36.5 C 91 18 121/88 H 94 03/25/18 08:00 03/25/18 08:00 03/25/18 08:00 03/25/18 08:00 03/25/18 08:00 Laboratory Results 03/24/18 04:15 03/25/18 03:23 03/24/18 03/25/18 03/26/18 05:59 05:59 05:59 Intake Total 440 1360 Output Total 200 Balance 440 1160 PT 13.9 SEC (12.0-15.0) 03/23/18 09:50 INR 1.05 (0.83-1.16) 03/23/18 09:50 EKG viewed, my personal interpretation is- rapid afib, HR 109 d/w Paitence Greenwood - per Dr. Roshni fitzpatrick for discharge home - Physical Exam Constitutional: no apparent distress, appears nourished, not in pain Cardiovascular: regular rate and rhythym, no murmur, rub, or gallop Respiratory: no respiratory distress, no rales or rhonchi, clear to auscultation Gastrointestinal: normoactive bowel sounds, soft, non-tender abdomen, no palpable masses Skin: no rashes or abrasions, no fluctuance, no induration Neurologic: AAOx3, sensation intact bilaterally Psychiatric: interacting appropriately, not anxious, not encephalopathic, thought process linear ICD10 Worksheet Patient Problems: Problems Problem Status Onset Alcohol withdrawal Acute Catheter-associated urinary tract infection Acute Chest pain Acute Diarrhea due to alcohol intake Acute Encephalopathy acute Acute Facial paresis Acute Generalized weakness Acute Hemiparesis Acute Hepatitis, alcoholic, acute Acute Hypomagnesemia Acute Hyponatremia Acute Sepsis Acute
--- NOTE | 2018-03-25 17:13 | PDMN ---
Medical Necessity Medical necessity: Change to IP, as of 03/24/18, per MD; los >2 mn s/p ablation POD #1 w/ETOH withdrawal; weakness & severe anxiety; requiring further monitoring, CIWA protocol & therapy; hx alcoholism
--- NOTE | 2018-03-25 18:23 | ASDISCHSUM ---
Discharge Information Plan Status:Home with No Needs Medically Cleared to Leave:03/25/2018 Discharge Date:03/25/2018 03:23 PM CM D/C Disposition:Home, Routine, Self-Care ADT D/C Disposition:Home Health Service Projected Discharge Date:03/25/2018 03:23 PM Transportation at D/C:Family Discharge Delay Reason: Follow-Up Date:03/25/2018 03:23 PM Discharge Slot: Final Diagnosis: Placement Information Patient Contact Information Contact Name:ALBER Relationship: Address:[address] [place] [address] City:[place] Alternate Phone: [facility]/Zip Code:[place] [address] Email: Financial Information Financial Class:Medicare Primary Plan Desc:MEDICARE INPATIENT Primary Plan Number:[id number] Secondary Plan Desc:MALIK MCCLELLAND Secondary Plan Number:[id number] Assessment Information LACE LACE Length of stay for Answers: 1 day current admission Acuity / Level of Answers: Yes Care: Did the patient have an inpatient admission? Comorbidities - select Answers: Congestive heart failure all that apply Other Notes: AFib; HTN # of Emergency department Answers: 0 visits in the last 6 months Social determinants Answers: History of substance abuse (ETOH, street drugs, prescription drugs, etc.) Mental health diagnosis (anxiety, depression, pers onality disorders, etc.) Score: 13 Date Signed: 03/25/2018 12:01 PM Electronically Signed By:Sanam Machado RN [facility] STEVEN Progress Note CM Note STEVEN Note Notes: 03/24/2018 Case Management Note Met w/yessica Wilson [phone] and pt to discuss ETOH cessation resources. Pt stated she would call her friend Tess who has achieved sobriety through AA. Provided list of Medicare resources including 30 day inpatient, intensive outpatient, private counseling and local AA resources. Pt was unwilling to discuss her plans with case management stating that once she gets home she will be fine. Pt is not committed to achieving sobriety at this time. Case Management d/c poc: home with family and follow up as directed. Case Management to follow. Date Signed: 03/24/2018 04:43 PM Electronically Signed By:Sanam Machado RN Case Management Discharge Plan Note Case Management Discharge Discharge Order Complete? Answers: Yes Patient to Obtain Answers: Independently Medications Transportation Arranged Answers: Family/Friends Discharge Comments Notes: 03/25/2018 Case Management Note Pt to discharge home independent with follow up as directed. Date Signed: 03/25/2018 12:02 PM Electronically Signed By:Sanam Machado RN Intervention Information Intervention Type:*TORRES-Signed Date of Service:03/24/2018 10:19 AM Patient Type:Observation Staff Member:Yamilex Toribio Hours: Discipline: Severity: Comment: Intervention Type:*Samir Leal Date of Service:03/23/2018 05:15 PM Patient Type:Inpatient Staff Member:ZEHRA Edmonds Courtney Hours: Discipline: Severity: Comment:
--- NOTE | 2018-03-25 19:53 | GDS ---
ADMIT DIAGNOSES: 1. Atrial flutter. 2. Atrial fibrillation. 3. Planned electrophysiology study with possible atrial flutter ablation. DISCHARGE DIAGNOSES: 1. Status post electrophysiology study with atrial flutter ablation with no complications. 2. Atrial fibrillation. 3. Atrial tachycardia. 4. Hypertension. 5. Alcohol withdrawal. 6. Mild cognitive impairment. COURSE OF HOSPITALIZATION: Nita came in for an electrophysiology study and possible atrial flutter ablation as a result of her visit with Dr. Barakat in clinic on March 19, 2018. She has a history of atrial fibrillation and had been in persistent atrial flutter/atrial tachycardia since being on flecainide, this was causing fatigue and palpitations. Dr. Barakat reviewed with she and her options of continued medical therapy versus electrophysiology study with possible ablation was discussed at length. Dr. Barakat discussed the relationship between atrial flutter and atrial fibrillation, and the confounding factors with her arrhythmias including a history of mitral and tricuspid regurgitation and pulmonary hypertension. When taken to the EP Lab, It was planned to assess for left atrial thrombus and assess her current valvular disease with a right heart catheterization, prior to the ablation procedure. It was further discussed that she will need to remain on antiarrhythmic drug therapy with flecainide following the ablation of atrial flutter. They were in agreement to proceed with ablation therapy. She was taken to the electrophysiology lab on 03/23/2018, where Dr. Barakat was able to isolate atrial flutter with successful ablation. Post ablation she unfortunately did have episodes of Atrial Tachycardia and Atrial Fibrillation. She went into Alcohol Withdrawal, that required an additional hospital day to allow for arrhythmia monitoring, and alcohol withdrawal management for safe transition to home. PHYSICAL EXAMINATION: VITAL SIGNS: On day of discharge, blood pressure 121/88 , heart rate 101, atrial tachycardia with episodes of atrial fibrillation. Heart rate was irregular with mild murmur noted. LUNGS: Clear to auscultation. No wheezes, rales, or rhonchi. EXTREMITIES: Groin site stitches were removed and groin site bilaterally intact with no bleeding, induration or ecchymosis. 03/23/18 Electrophysiology Study and Procedure: INDICATIONS FOR PROCEDURE: 1. Recurrent atrial flutter. 2. Atrial fibrillation post atrial flutter. PROCEDURES PERFORMED: 1. EP evaluation with RA/RV/LA pace/record, with arrhythmia induction. 2. EP evaluation with RA/RV pace record, insert/reposition catheter, with arrhythmia induction. 3. Right heart catheterization. 4. SVT ablation. 5. 3D mapping. 6. Fluoroscopy. CONCLUSIONS: 1. Cavotricuspid isthmus dependent counterclockwise atrial flutter. 2. Successful catheter-mediated ablation of the cavotricuspid isthmus achieving bidirectional conduction block across cavotricuspid isthmus. 3. Atrial fibrillation, not targeted for ablation. 4. No apparent complications. 03/24/2018, Echocardiogram post procedure 1. Normal global systolic LV function. 2. Moderate mitral valve regurgitation. 3. Trivial aortic valve regurgitation. 4. Right ventricular systolic pressure measured 44 mm of Hg. 5. Ejection fraction 57% with no regional wall motion abnormalities. 6. Unable to assess diastolic function due to arrhythmia. 7. Possible physiologic pericardial effusion. Post electrophysiology study and upon transfer to PCU, it was noted that Nita became anxious, irritable, with noted tremors. She was asked about alcohol use and did admit to drinking 2 glasses of wine each evening. Nita was displaying signs and symptoms of possible alcohol withdrawal. Hospitalist Service was asked to consult due to onset of the irritability and tremors. Dr. Maldonado Hensley did consult and determined that she was having acute alcohol withdrawal. For full consult information please see Hospitalist Consult dated . She had become increasingly hypertensive with tachycardia through the afternoon post ablation. A 12-lead EKG on 03/23/2018, post procedure showed a sinus tachycardia at a rate of 119. After admit to PCU from the [facility], she was in sinus tachycardia, that progressed to rapid atrial fibrillation. An amiodarone bolus was given followed by amiodarone protocol. Dr. Hensley discussed with Dr. Barakat a plan to manage the alcohol withdrawal utilizing alcohol withdrawal protocol that allows small amounts of alcohol to help things settle down and prevent severe alcohol withdrawal symptoms. Electrolyte protocols were in place, along with thiamine replacement. Alcohol counseling and recommendations for considering residential treatment or other effective therapy were discussed with Nita for after hospital discharge. She became weak, shaky, with tremors with periods of no alcohol. Benzo's were given to help manage these episodes. The alcohol withdrawal did improve. During the 2nd day, on 03/24/2018, it was felt that she was not stable for discharge and would require an additional overnight stay. PT worked with her with ambulation and balance for her safety. On 03/25/2018, she was calmer, stronger, and able to ambulate with a walker safely. She was anxious to go home. She continued to have periodic episodes of atrial fibrillation and atrial tachycardia along with sinus tachycardic episodes. It was determined that she was stable for discharge. Recommendations were reinforced to seek alcohol counseling and consider inpatient alcohol rehab. Arrangements were made for Home Care to follow her post discharge to ensure her safety at home, and to monitor her arrhythmia, and provide medication assistance During her discharge instructions, it was noted that she went back into atrial fibrillation. The discharge was put on hold for a short period of time to assess the arrhythmia. This was reviewed with Dr. Barakat. He felt that it likely was a result of her alcohol use, and she could be discharged home on her flecainide and metoprolol, along with Eliquis for anticoagulation. She was calm and cooperative at time of discharge. Her accompanied her. DISCHARGE PLAN: 1. She will follow up with Dr. Barakat on April 30, 2018, at 2:45 at [facility]. 2. She is encouraged to seek alcohol counseling. 3. Groin precautions were reviewed with her verbally and written instructions were provided. No lifting, pushing, pulling greater than 10 pounds for 7 days. No sitting in a tub of water for 7 days. Okay to shower. Keep site clean with soap and water. Use no ointments on incision site. 4. Should she have concerns or questions, please call [facility] and ask for Dr. Barakat's RN, Almaz or Maryana. At this time, she is alert and oriented and felt to be stable for discharge, with Home Care. /[id number]/MODL MTDD
--- NOTE | 2018-03-26 08:37 | CPEKG ---
Test Reason : OPEN Blood Pressure : / mmHG Vent. Rate : 098 BPM Atrial Rate : 088 BPM P-R Int : 190 ms QRS Dur : 092 ms QT Int : 394 ms P-R-T Axes : 039 -46 -40 degrees QTc Int : 504 ms Sinus rhythm Atrial premature complexes Probable left atrial enlargement Left anterior fascicular block Probable anterior infarct, age indeterminate Confirmed by Tam Sanz ([id number]) on 03/26/2018 8:36:43 AM Referred By: Confirmed By:Tam Sanz
--- NOTE | 2018-03-26 08:41 | CPEKG ---
Test Reason : OPEN Blood Pressure : / mmHG Vent. Rate : 109 BPM Atrial Rate : 263 BPM P-R Int : 200 ms QRS Dur : 085 ms QT Int : 360 ms P-R-T Axes : 000 -47 -24 degrees QTc Int : 485 ms Atrial fibrillation Inferior infarct, old Confirmed by Tam Sanz ([id number]) on 03/26/2018 8:40:50 AM Referred By: Confirmed By:Tam Sanz
== END 2018-03-25 15:23 | disposition home health service (06) | DRG 982 ==
LOC: FCATH 09:15 → EDSTATUS 11:00 → F2W 13:16 → OBSVTOIN 03-24 11:33
PROVIDERS: ADMIT Internal Medicine Cardiovascular Disease; ATTEND Internal Medicine Cardiovascular Disease
PROC: 02563ZZ Destruction of Right Atrium, Percutaneous Approach (ICD-10-PCS; principal; 2018-03-23)
DX: F10.239 Alcohol dependence with withdrawal, unspecified (principal); I48.92 Unspecified atrial flutter; I47.1 Supraventricular tachycardia; I48.91 Unspecified atrial fibrillation; I10 Essential (primary) hypertension; G31.84 Mild cognitive impairment of uncertain or unknown etiology; E83.42 Hypomagnesemia; F41.8 Other specified anxiety disorders; I27.20 Pulmonary hypertension, unspecified; M06.9 Rheumatoid arthritis, unspecified; M10.9 Gout, unspecified; E87.5 Hyperkalemia; G62.9 Polyneuropathy, unspecified
CPT/HCPCS: 97116-GP; 97161-GP; 97165-GO; C1731; C1732; C1766; G8978-GP-CK; G8979-GP-CH; G8987-GO-CI; G8988-GO-CI; G8989-GO-CI; J0282; J1100; J1644; J2060; J2370; J2405; J2704; J2710; J2720; J3010; J3475

== ENCOUNTER 2018-09-14 09:00 | Day surgery (SDC) | payer OTHER ==
[~2018-09-14 09:00] MED LIST changes: +BACITRACIN 50,000 UNITS/10 ML SYR IRR ONE; +BUPIVACAINE/EPI 0.5% 30 ML SDV ONE; +CALCIUM CHLORIDE 1 GM/10 ML INJ ONE; +EPINEPHrine 1 MG/ML INJ ONE; +POLYMYXIN B SULFATE 500,000 UNIT/10 ML SYR IRR ONE; +ROPIVACAINE 0.2% 80 MG, EPINEPHrine 0.2 MG, KETOROLAC TROMETHAMINE 30 MG in SYRINGE 0 ML IU ONE; +THROMBIN (BOVINE) 20,000 UNIT SPRAY TP ONE; +THROMBIN (BOVINE) 5,000 UNIT VIAL TP ONE; -ceFAZolin 2 GM/DEXTROSE 100 ML IV ONE
[2018-09-14] MEDS ORDERED: ceFAZolin 2 GM/DEXTROSE 100 ML IV ONE (09:22)
[2018-09-14] MEDS ORDERED: ACETAMINOPHEN 325 MG TAB PO ONE (09:22)
[2018-09-14] MEDS ORDERED: LR 1,000 ML IV ONE (09:23)
[2018-09-14] MEDS ORDERED: MIDAZOLAM 2 MG/2 ML VIAL ONE (10:10)
[2018-09-14] MEDS ORDERED: MIDAZOLAM 2 MG/2 ML VIAL IVP ONE (10:13)
--- NOTE | 2018-09-14 10:15 | PDANEPAE ---
ANE Past Medical History - Cardiovascular History Hx Hypertension: Yes Hx Arrhythmias: Yes Hx Chest Pain: Yes Hx Coronary Artery / Peripheral Vascular Disease: No Hx CHF / Valvular Disease: Yes Hx Palpitations: No Cardiovascular History Comment: CARDIOVERSION/ABLATION - Pulmonary History Hx COPD: No Hx Asthma/Reactive Airway Disease: No Hx Recent Upper Respiratory Infection: No Hx Oxygen in Use at Home: No Hx Sleep Apnea: No Sleep Apnea Screening Result - Last Documented: Negative - Neurologic History Hx Cerebrovascular Accident: No Hx Seizures: No Hx Dementia: No Neurologic History Comment: concussions x2 -short term memory loss. - Endocrine History Hx Diabetes: No Hypothyroid: No Hyperthyroid: No Obesity: no - Renal History Hx Renal Disorders: No - Liver History Hx Hepatic Disorders: No - Neurological & Psychiatric Hx Hx Neurological and Psychiatric Disorders: Yes Neurological / Psychiatric History Comment: Effexor " evens me out" - Cancer History Hx Cancer: Yes Cancer History Comment: SKIN CANCER-basal - Congenital Disorder History Hx Congenital Disorders: No - GI History Hx Gastrointestinal Disorders: No - Other Health History Other Health History: RA x 2 years managed- Hydroxychloroquine Sulfate. hernia on lumbar area R side. - Chronic Pain History Chronic Pain: No - Surgical History Prior Surgeries: APPY ANE Review of Systems Review of Systems: - Exercise capacity METS (RN): 5 METS ANE Patient History - Allergies Allergies/Adverse Reactions: No Known Allergies Allergy (Verified 01/28/18 11:03) - Home Medications Home Medications: Triamterene/Hydrochlorothiazid [Triamterene-Hctz 37.5-25 mg Cp] 1 each PO DAILY 04/13/15 [Last Taken 09/13/18] Venlafaxine Xr [Effexor Xr 75MG (*)] 75 mg PO DAILY 04/13/15 [Last Taken ] Allopurinol [Allopurinol 300 MG (RX)] 300 mg PO DAILY 02/20/18 [Last Taken 09/14] Apixaban [Eliquis] 5 mg PO BID 02/20/18 [Last Taken 09/10/18] Simvastatin 20 mg PO HS 02/20/18 [Last Taken 09/13/18] Metoprolol Tartrate [Lopressor 50 mg (*)] 50 mg PO DAILY PRN 03/23/18 [Last Taken 09/14/18] Herbals/Supplements -Info Only 09/02/18 [Last Taken 09/09/18] - NPO status NPO Since - Liquids (Date): 09/14/18 NPO Since - Liquids (Time): 07:30 NPO Since - Solids (Date): 09/13/18 NPO Since - Solids (Time): 19:00 - Smoking Hx Smoking Status: Former smoker - Family Anes Hx Family Hx Anesthesia Complications: NONE ANE Labs/Vital Signs - Vital Signs Blood Pressure: 159/98 Heart Rate: 71 Respiratory Rate: 16 O2 Sat (%): 97 Height: 157.48 cm Weight: 54.431 kg ANE Physical Exam - Airway Neck exam: decreased ROM Mallampati Score: Unable to assesss Mouth exam: small mouth opening - Pulmonary Pulmonary: no respiratory distress - Cardiovascular Cardiovascular: regular rate and rhythym - ASA Status ASA Status: II ANE Anesthesia Plan Anesthesia Plan: general endotracheal anesthesia Regional Anesthesia: interscalene BP NB
[2018-09-14] MEDS ORDERED: PROPOFOL 200 MG/20 ML VIAL ONE ×2 (10:23)
[2018-09-14] MEDS ORDERED: fentaNYL 250 MCG/5 ML INJ ONE (10:23)
[2018-09-14] MEDS ORDERED: *IRR*TRANEXAMIC ACID 3,000 MG/NS 50 ML IRR ONE (12:30)
[2018-09-14] MEDS ORDERED: EPINEPHrine 1 MG/ML INJ ONE (12:31)
[2018-09-14] MEDS ORDERED: ROCURONIUM 100 MG/10 ML VIAL ONE (13:05)
[2018-09-14] MEDS ORDERED: LIDOCAINE 2% 5 ML SDV ONE (13:05)
[2018-09-14] MEDS ORDERED: ROPIVACAINE HCL 150 MG/30 ML INJ ONE (13:05)
[2018-09-14] MEDS ORDERED: DEXAMETHASONE 4 MG/ML VIAL ONE (13:06)
[2018-09-14] MEDS ORDERED: ONDANSETRON 4 MG/2 ML VIAL ONE (13:06)
[2018-09-14] MEDS ORDERED: VASOPRESSIN 20 UNIT/ML VIAL ONE (13:06)
[2018-09-14] MEDS ORDERED: PHENYLEPHRINE HCL 100 MCG/ML SYR ONE (13:06)
[2018-09-14] MEDS ORDERED: PHENYLEPHRINE HCL 100 MCG/ML SYR IVP PRN (14:03)
[2018-09-14] MEDS ORDERED: fentaNYL 100 MCG/2 ML INJ IVP PRN (14:03)
[2018-09-14] MEDS ORDERED: NALOXONE HCL 0.4 MG/ML INJ IVP PRN (14:03)
[2018-09-14] MEDS ORDERED: SUGAMMADEX SODIUM 200 MG/2 ML VIAL IVP ONE (14:29)
--- NOTE | 2018-09-14 15:40 | POSTOPPROG ---
Post Op Note Date of Operation: 09/14/18 Surgeon: Day Abdalla [place] Rod Assembler: Enedina Tucker PA-C Anesthesiologist: Dr. Rivera Anesthesia: GET(General Endotracheal) Pre-op Diagnosis: right shoulder osteoarthritis Post-op Diagnosis: right shoulder osteoarthritis Indication: right shoulder pain Procedure: right TSA Inf/Abcess present in the surg proc area at time of surgery?: No EBL: 100-500 Complications: none Dr. Abdalla had lengthy discussion with Nita prior to surgery regarding history of alcohol abuse during last hospital admission. Patient stated she now only has 2 glasses of wine per night and no hard alcohol. Dr. Abdalla discussed risks of narcotics + EtOH and patient voiced understanding.
[2018-09-14 19:33] VITALS: BP 108/71
--- NOTE | 2018-09-25 07:59 | GOP ---
[f rep st] OPERATIVE REPORT DATE OF OPERATION: 09/14/2018 SURGEON: Day Abdalla MD RECONCILIATION CLERK: JANET Brito ANESTHESIA: General with interscalene block. PREOPERATIVE DIAGNOSIS: Severe osteoarthritis, right shoulder. POSTOPERATIVE DIAGNOSIS: Severe osteoarthritis, right shoulder. PROCEDURE PERFORMED: Right total shoulder arthroplasty with biceps tenodesis, right shoulder. FINDINGS: Preoperative x-rays of the patient's right shoulder demonstrated severe osteoarthritis. A t the time of surgery, the glenohumeral joint was exposed through a deltopectoral incision. The socrates ent was noted to have complete loss of the articular cartilage on both the glenoid and humeral head. There was marked osteophyte formation around the periphery of both the humeral head and the glenoid. An Arthrex total shoulder arthroplasty was performed. A small glenoid component was cemented in pl aced on the glenoid side, and a 6 mm stem with a 44 x 19 mm head was placed on the humeral side. Thi s was press-fit into position. Following implantation of the components, the shoulder was taken thro ugh range of motion, and she could achieve excellent overhead elevation as well as internal and exter nal rotation. There was good excursion of the humeral head relative to the coronoid. A satisfactory repair of the subscapularis was achieved at the completion of the procedure. The biceps tendon was also tenodesed to the pectoralis intraoperatively. ESTIMATED BLOOD LOSS: 250 cc. DESCRIPTION OF PROCEDURE: The patient was taken to the operating room, placed in a supine position o n the operating table. Following placement of an interscalene block and induction of adequate genera l inhalation anesthesia, the patient was carefully positioned on the operating room table and secured . The shoulder and arm were then prepped and draped in the usual sterile manner. The patient receiv ed 1 g of IV Ancef. A deltopectoral approach to the shoulder was made. The incision started just in ferior to the clavicle and extended across the coracoid process down to the axillary fold. Incision was carried down through subcutaneous tissue to the deltopectoral interval. The cephalic vein was lo cated and retracted laterally with the deltoid. The pectoralis was mobilized medially. The incision was carried down to the upper border of the pec tendon. This was incised to enhance visualization. It was incised for approximately 8 to 10 mm of the superior portion of the tendon. The clavipectora l fascia was then incised. The coracoid musculature was retracted medially. The bicipital groove wa s located, and the biceps tendon was retrieved in the bicipital groove. Using #2 FiberWire, the lex ps tendon was tenodesed to the upper border of the pectoralis. The biceps tendon was followed up sup eriorly up to the rotator interval, and then the rotator interval was incised. The lesser tuberosity was exposed, and then the subscapularis was peeled off the lesser tuberosity using the Bovie. The v ascular bundle of the inferior margin of the subscapularis was also cauterized and tied off. The sub scapularis was mobilized medially, and the glenohumeral joint was entered. The capsule was peeled of f the posterior aspect of the subscapularis and excised. Appropriate inferior releases were performe d, taking care to protect the axillary nerve. The capsule was released around to about the 7 o'clock position. Once the capsule was adequately released, the arm was externally rotated, and the humeral head was exposed. Using the neck-cutting guide, the neck cut was marked, and then the head was therese oumar with the saw. The humerus was then prepared. The reamers, starting with the starter reamer and increasing up to the 6 mm reamer, were utilized. The size 5 and then the size 6 broach were impacted . An excellent fit was noted with a size 6 broach; so the trial with the metal protector for the cut edge of the bone was implanted into the humerus temporarily while our attention was turned back to t he glenoid. Additional soft tissue releases were performed around the periphery of the glenoid, and the labrum was excised. A Derra retractor was placed posteriorly and inferiorly to retract the humer us out of the way, and then the glenoid was prepared. A guidewire was placed in the center of the gl enoid, and then the reamer was used to ream the surface of the glenoid. Once the concentric surface was achieved, the central drill guide was utilized. This was followed by the superior drill hole and then the 3 inferior drill holes. The trial reduction was performed with the component, and once it was well-seated, it was removed, and the bony surfaces were prepared for cementing. An epinephrine-s oaked sponge was placed in the drill holes to obtain hemostasis, and then once this was achieved, the cement was mixed. The glenoid was thoroughly dried, and then cement was placed in the superior and inferior holes. Bony ingrowth was utilized in the central hole. The small glenoid component was imp acted into place and held while the cement hardened. The humerus was then brought back into view, an d the trial component was removed from the humerus. The size 6 stem was opened and impacted. The 44 x 19 eccentric head was utilized on the taper of the stem. An excellent fit was noted. The shoulde r was reduced, and excellent stability and range of motion were noted. The wound was thoroughly irri gated out, and hemostasis was obtained with the Bovie. Next, the repair of the subscapularis was und ertaken. Sutures had been previously placed in the stem prior to impaction. Two drill holes were pl aced in the bicipital groove. Sutures were pulled through those holes from the stem, and these were utilized to perform a repair of the subscapularis. The #2 FiberWire was tied per the Arthrex protoco l, and an excellent repair of the subscapularis was achieved. The biceps tendon was also incorporate d into the subscapularis repair to reinforce the soft tissue tenodesis. The wound was again irrigate d out and then closed using 2-0 Vicryl in the subcutaneous tissue followed by jose in the skin. S terile dressings were applied. The patient tolerated the procedure well, and there were no complicat ions. Estimated blood loss 250 cc. Final sponge, needle counts were correct. The patient was trans ported to the recovery room in good condition. /[id number]/MODL
== END 2018-09-14 19:00 | disposition home or self-care (01) ==
LOC: FSGY 09:00
PROVIDERS: ATTEND Orthopaedic Surgery
PROC: 0RRJ0JZ Replacement of Right Shoulder Joint with Synthetic Substitute, Open Approach (ICD-10-PCS; principal; 2018-09-14 10:15)
DX: M19.011 Primary osteoarthritis, right shoulder (principal); I48.0 Paroxysmal atrial fibrillation; E78.00 Pure hypercholesterolemia, unspecified; I10 Essential (primary) hypertension; F10.980 Alcohol use, unspecified with alcohol-induced anxiety disorder; F41.9 Anxiety disorder, unspecified; Z79.01 Long term (current) use of anticoagulants; Z87.820 Personal history of traumatic brain injury; Z85.828 Personal history of other malignant neoplasm of skin
CPT/HCPCS: C1713; J0171; J0690; J1100; J2250; J2370; J2405; J2704; J2795; J3010